=== PATIENT | female | born 1995 | race Hispanic/Latino ===

== ENCOUNTER 2017-12-13 21:35 | Emergency (ER) | payer OTHER | END 2017-12-13 22:01 | disposition home or self-care (01) | LOC: EDH 21:35 | DX: J02.9 Acute pharyngitis, unspecified (principal); H92.09 Otalgia, unspecified ear ==

== ENCOUNTER 2018-10-26 10:39 | Emergency (ER) | payer OTHER ==
[~2018-10-26 10:39] MED LIST: PREN-154 PO
== END 2018-10-26 11:43 | disposition home or self-care (01) ==
LOC: EDH 10:39
DX: R04.0 Epistaxis (principal)
CPT/HCPCS: 99281